=== PATIENT | male | born 1985 | race Caucasian/White ===

== ENCOUNTER → 2016-11-27 | Outpatient (CLI) | payer BC ==
--- NOTE | 2016-11-27 16:57 | DIAGNOSTIC IMAGING REPORT ---
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 These are considered unchanged from the prior exam. The possibly of a small hypoechoic nodule within the right thyroid bed is again noted but this is unchanged ultrasonically from the prior exam. Several small nodes in the cervical chains are noted bilaterally. The satisfactory criteria for benign findings and do not exceed 8 mm maximum dimension. No evidence for significant cervical adenopathy. IMPRESSION: 1. Stable ultrasound of the thyroid beds post thyroidectomy. 2. Small amount of residual thyroid tissue showing slight heterogeneity also unchanged. 3. Several small cervical nodes of doubtful, if any, clinical significance. Electronically signed by: Eddie Nelson M.D. 11/27/2016 4:56 PM Dictated Date/Time: 11/27/2016 4:49 PM
== END | disposition home or self-care (01) ==
LOC: C.ULTR 15:51
PROVIDERS: ATTEND Internal Medicine Endocrinology, Diabetes & Metabolism
DX: C73 Malignant neoplasm of thyroid gland (principal)

== ENCOUNTER → 2016-12-01 | Outpatient (CLI) | payer BC ==
[2016-12-01 11:05] LABS: THYROID STIMULATING HORMONE 5.73 uIu/ml (0.300-4.500)
== END | disposition home or self-care (01) ==
LOC: C.LABBC 07:51
PROVIDERS: ATTEND Internal Medicine Endocrinology, Diabetes & Metabolism
DX: E89.0 Postprocedural hypothyroidism (principal)

== ENCOUNTER → 2017-02-18 | Outpatient (CLI) | payer BC ==
[2017-02-18 11:39] LABS: THYROID STIMULATING HORMONE 0.679 uIu/ml (0.300-4.500)
== END | disposition home or self-care (01) ==
LOC: C.LABBC 07:29
PROVIDERS: ATTEND Internal Medicine Endocrinology, Diabetes & Metabolism
DX: E89.0 Postprocedural hypothyroidism (principal)

== ENCOUNTER → 2018-01-12 | Outpatient (CLI) | payer OTHER | END | disposition home or self-care (01) | LOC: C.LABBC 07:39 | PROVIDERS: ATTEND Internal Medicine Endocrinology, Diabetes & Metabolism | DX: E89.0 Postprocedural hypothyroidism (principal) ==